=== PATIENT | female | born 1955 | race Caucasian/White ===

== ENCOUNTER 2018-12-07 19:54 | Inpatient (IN) | payer MEDICARE, BC ==
[~2018-12-07] VITALS: Ht 165.1 cm; Wt 49.0 kg
[2018-12-07] MEDS ORDERED: ACETAMINOPHEN 325 MG TAB PO STA (22:46)
--- NOTE | 2018-12-07 22:51 | ERD ---
ER Documentation Chief Complaint Chief Complaint PT TRIP & FALL AT [employer] WITH MS, PT PRESENTS CONFUSED, PERRLA HPI 63-year-old female, with history of multiple sclerosis, presents to the emergency department, complaining of head trauma after sustaining a ground-level fall hitting the posterior aspect of her head. The event occurred approximately 2 hours prior to arrival and was witnessed by sister. No loss of consciousness no involuntary limb movement, no nausea or vomiting. The pain is dull, constant, 6/10. She denies blurred vision. ROS All systems reviewed and are negative except as per history of present illness. PMhx/Soc Medical and Surgical Hx: pt denies Surgical Hx Hx Neurological Disorder: Yes (MS ) Hx Respiratory Disorders: No Hx Cardiac Disorders: No Hx Psychiatric Problems: No Hx Miscellaneous Medical Probl: No Hx Alcohol Use: No Hx Substance Use: No Hx Tobacco Use: No Smoking Status: Never smoker FmHx Family History: No diabetes, No coronary disease Physical Exam Vitals Vital Signs Date Temp Pulse Resp B/P (MAP) Pulse Ox O2 O2 Flow FiO2 Time Delivery Rate 12/07/18 99.0 101 18 123/73 98 20:45 (90) Physical Exam Const: No acute distress Head: Atraumatic Eyes: Normal Conjunctiva ENT: Normal External Ears, Nose and Mouth. Neck: Full range of motion. No meningismus. Resp: Clear to auscultation bilaterally Cardio: Regular rate and rhythm, no murmurs Abd: Soft, non tender, non distended. Normal bowel sounds Skin: No petechiae or rashes Back: No midline or flank tenderness Ext: No cyanosis, or edema Neur: Awake and alert Psych: Normal Mood and Affect Result Diagram: 12/07/18 2315 12/07/18 2315 Results 24 hrs Laboratory Tests Test 12/07/18 23:15 White Blood Count 7.3 10^3/ul Red Blood Count 4.89 10^6/ul Hemoglobin 14.4 g/dl Hematocrit 43.0 % Mean Corpuscular Volume 87.9 fl Mean Corpuscular Hemoglobin 29.4 pg Mean Corpuscular Hemoglobin Concent 33.5 g/dl Red Cell Distribution Width 12.5 % Platelet Count 226 10^3/UL Mean Platelet Volume 10.9 fl Immature Granulocytes % 0.400 % Neutrophils % 80.8 % Lymphocytes % 13.0 % Monocytes % 5.2 % Eosinophils % 0.1 % Basophils % 0.5 % Nucleated Red Blood Cells % 0.0 /100WBC Immature Granulocytes # 0.030 10^3/ul Neutrophils # 5.9 10^3/ul Lymphocytes # 1.0 10^3/ul Monocytes # 0.4 10^3/ul Eosinophils # 0.0 10^3/ul Basophils # 0.0 10^3/ul Nucleated Red Blood Cells # 0.0 10^3/ul Prothrombin Time 12.1 Sec Prothrombin Time Ratio 0.9 INR International Normalized Ratio 0.89 Activated Partial Thromboplast Time 25.8 Sec Sodium Level 140 mmol/L Potassium Level 3.5 mmol/L Chloride Level 104 mmol/L Carbon Dioxide Level 29 mmol/L Anion Gap 7 Blood Urea Nitrogen 14 mg/dl Creatinine 0.70 mg/dl Est Glomerular Filtrat Rate mL/min > 60 mL/min Glucose Level 113 mg/dl Calcium Level 9.4 mg/dl Current Medications Medications Dose Sig/Tapan Start Time Status Last (Trade) Ordered Route PRN Stop Time Admin Dose Reason Admin 650 mg ONCE STAT 12/07/18 DC 12/07/18 Acetaminophen PO 22:46 12/07/18 23:17 (Tylenol 22:49 Tab) Departure Condition: Stable Additional Instructions: Thank you very much for allowing us to participate in your care. Your health and safety is our top priority at [facility]. The evaluation in the emergency department has been done to rule out an acute emergency. Chronic, zje-hyhb-nepqbcortwa conditions may have not been evaluated; therefore, you need to follow up with a primary care provider in the next 48h. If symptoms persist, worsen or new symptoms develop, then patient should return to the ED immediately. Call your primary care doctor TOMORROW for an appointment during the next 2-4 days and bring all the information provided. Have prescriptions filled and follow precisely the directions on the label. If the symptoms get worse and your provider is unavailable, return to the Emergency Department immediately. GISELE CABALLERO MD Dec 07, 2018 22:51
[2018-12-08] VITALS (11 sets, daily range): BP systolic 117–140; BP diastolic 65–80; PULSE 66–92; RESP 18–22; Ht 165.1 cm; Wt 49.0 kg
[2018-12-08] MEDS ORDERED: ACETAMINOPHEN 325 MG TAB PO PRN ×2 (01:30→02:00)
[2018-12-08] MEDS ORDERED: ONDANSETRON 4 MG INJ IV PRN ×2 (01:30→02:00)
[2018-12-08] MEDS ORDERED: NACL 0.9% 3 ML SYG IV SCH (02:00)
[2018-12-08] MEDS ORDERED: ALBUTEROL/IPRATROPIUM (NEB) 3 ML AMP HHN PRN (02:00)
[2018-12-08] MEDS ORDERED: DOCUSATE SODIUM 100 MG CAP PO PRN (02:00)
[2018-12-08] MEDS ORDERED: HYDROCODONE/APAP (5/325) TAB PO PRN (02:00)
[2018-12-08] MEDS ORDERED: MAGNESIUM HYDROXIDE 30ML CUP PO PRN (02:00)
[2018-12-08] MEDS ORDERED: hydrALAzine 20 MG INJ IV PRN (02:00)
[2018-12-08] MEDS ORDERED: NITROGLYCERIN (SL) 0.4 MG TAB SL PRN (02:00)
[2018-12-08] MEDS ORDERED: morphine 2 MG INJ IV PRN (02:00)
[2018-12-08] MEDS ORDERED: LORAZEPAM 2 MG INJ IV PRN (02:00)
--- NOTE | 2018-12-08 02:26 | ERD ---
ER Documentation Chief Complaint Chief Complaint PT TRIP & FALL [facility] [employer] WITH MS, PT PRESENTS CONFUSED, PERRLA HPI This 61-year-old female presents with confusion. According to family she was last known normal approximately 24 hours ago. Apparently she fell and moving. Since then she has been altered. She is alert and oriented, however she keeps repeating herself. She states her symptoms to periodically forget where she is. This is new behavior per the family. Patient herself provides very limited history. ROS All systems reviewed and are negative except as per history of present illness. PMhx/Soc Medical and Surgical Hx: pt denies Surgical Hx Hx Neurological Disorder: Yes (MS ) Hx Respiratory Disorders: No Hx Cardiac Disorders: No Hx Psychiatric Problems: No Hx Miscellaneous Medical Probl: No Hx Alcohol Use: No Hx Substance Use: No Hx Tobacco Use: No Smoking Status: Never smoker Physical Exam Vitals Vital Signs Date Temp Pulse Resp B/P (MAP) Pulse Ox O2 O2 Flow FiO2 Time Delivery Rate 12/08/18 98.5 69 18 139/89 100 Room Air 00:45 (106) 12/07/18 99.0 101 18 123/73 98 20:45 (90) Physical Exam Const: No acute distress Head: Atraumatic Eyes: Normal Conjunctiva ENT: Normal External Ears, Nose and Mouth. Neck: Full range of motion. No meningismus. Resp: Clear to auscultation bilaterally Cardio: Regular rate and rhythm, no murmurs Abd: Soft, non tender, non distended. Normal bowel sounds Skin: No petechiae or rashes Back: No midline or flank tenderness Ext: No cyanosis, or edema Neur: Awake and alert Psych: Normal Mood and Affect Result Diagram: 12/07/18 2315 12/07/18 2315 Results 24 hrs Laboratory Tests Test 12/07/18 23:15 White Blood Count 7.3 10^3/ul Red Blood Count 4.89 10^6/ul Hemoglobin 14.4 g/dl Hematocrit 43.0 % Mean Corpuscular Volume 87.9 fl Mean Corpuscular Hemoglobin 29.4 pg Mean Corpuscular Hemoglobin Concent 33.5 g/dl Red Cell Distribution Width 12.5 % Platelet Count 226 10^3/UL Mean Platelet Volume 10.9 fl Immature Granulocytes % 0.400 % Neutrophils % 80.8 % Lymphocytes % 13.0 % Monocytes % 5.2 % Eosinophils % 0.1 % Basophils % 0.5 % Nucleated Red Blood Cells % 0.0 /100WBC Immature Granulocytes # 0.030 10^3/ul Neutrophils # 5.9 10^3/ul Lymphocytes # 1.0 10^3/ul Monocytes # 0.4 10^3/ul Eosinophils # 0.0 10^3/ul Basophils # 0.0 10^3/ul Nucleated Red Blood Cells # 0.0 10^3/ul Prothrombin Time 12.1 Sec Prothrombin Time Ratio 0.9 INR International Normalized Ratio 0.89 Activated Partial Thromboplast Time 25.8 Sec Sodium Level 140 mmol/L Potassium Level 3.5 mmol/L Chloride Level 104 mmol/L Carbon Dioxide Level 29 mmol/L Anion Gap 7 Blood Urea Nitrogen 14 mg/dl Creatinine 0.70 mg/dl Est Glomerular Filtrat Rate mL/min > 60 mL/min Glucose Level 113 mg/dl Calcium Level 9.4 mg/dl Troponin I < 0.012 ng/ml Current Medications Medications Dose Sig/Tapan Start Time Status Last (Trade) Ordered Route PRN Stop Time Admin Dose Reason Admin 650 mg ONCE STAT 12/07/18 DC 12/07/18 Acetaminophen PO 22:46 12/07/18 23:17 (Tylenol 22:49 Tab) Ondansetron 4 mg ER BRIDGE 12/08/18 HCl (Zofran PRN IV 01:30 12/09/18 Inj) NAUSEA/VOMITI 01:29 NG 650 mg ER BRIDGE 12/08/18 Acetaminophen PRN PO 01:30 12/09/18 (Tylenol .MILD PAIN 01:29 Tab) 1-3 OR TEMP IV Flush 3 ml PER 12/08/18 (NS 3 ml) PROTOCOL IV 02:00 Ondansetron 4 mg Q6H PRN 12/08/18 HCl (Zofran IV 02:00 Inj) NAUSEA/VOMITI NG 650 mg Q6H PRN 12/08/18 Acetaminophen PO .PAIN 1-3 02:00 (Tylenol OR TEMP Tab) 1 tab Q6H PRN 12/08/18 Acetaminophen PO .MOD PAIN 02:00 / 4-6 Hydrocodone Bitart ([place] (5/325)) Morphine 2 mg Q4H PRN 12/08/18 Sulfate IV .SEVERE 02:00 (morphine) PAIN 7-10 Docusate 100 mg Q12H PRN 6/5/19 Sodium PO 02:00 (Colace) .CONSTIPATION Magnesium 30 ml DAILY PRN 12/08/18 Hydroxide PO 02:00 (Milk Of Mag) .CONSTIPATION Heparin 5,000 unit Q12 SC 12/08/18 Sodium 09:00 (Porcine) (Heparin (5000 Units/1ml)) Sodium 1,000 ml @ [id number] IV 12/08/18 Chloride 75 mls/hr 01:39 Lorazepam 0.5 mg Q6H PRN 12/08/18 (Ativan) IV ANXIETY 02:00 Albuterol/ 3 ml Q4H RESP 12/08/18 Ipratropium THERAPY PRN 02:00 (Duoneb) HHN SHORTNESS OF BREATH Hydralazine 10 mg Q6H PRN 12/08/18 HCl IV ELEVATED 02:00 (Apresoline) BLOOD PRESSURE 1 tab Q5M PRN 12/08/18 Nitroglycerin SL ANGINA 02:00 (Nitroglyceri n (Sl Tab) 0.4 Mg) Aspirin 325 mg DAILY PO 12/08/18 (Ecotrin) 09:00 Procedures/MDM EKG: Rate/Rhythm: [Normal Sinus Rhythm] QRS, ST, T-waves: [No changes consistent w/ acute ischemia] Impression: [No evidence of ischemia or arrhythmia] Chest X-ray 1V Interpreted by me: Soft Tissue: No acute abnormalities Bones: No acute abnormalities Mediastinum/Cardiac Silhouette/Lungs: [No acute abnormalities] Medical decision makin-year-old female with alteration in mental status. Work-up was essentially negative, however given her continued alteration, patient will be admitted to telemetry floor to hospitalist group. Departure Diagnosis: Primary Impression: Altered mental status Altered mental status type: unspecified Qualified Codes: R41.82 - Altered mental status, unspecified Condition: Stable Additional Instructions: Thank you very much for allowing us to participate in your care. Your health and safety is our top priority at [facility]. The evaluation in the emergency department has been done to rule out an acute emergency. Chronic, pzv-isas-kegsqiywtrs conditions may have not been evaluated; therefore, you need to follow up with a primary care provider in the next 48h. If symptoms persist, worsen or new symptoms develop, then patient should return to the ED immediately. Call your primary care doctor TOMORROW for an appointment during the next 2-4 days and bring all the information provided. Have prescriptions filled and follow precisely the directions on the label. If the symptoms get worse and your provider is unavailable, return to the Emergency Department immediately. SORAYA LUCAS. Dec 08, 2018 02:26
[2018-12-08] MEDS: SOD CHLORIDE 0.45% 1,000 ML IV SCH ×3 (04:37→20:39)
[2018-12-08] MEDS ORDERED: OCRE300V IV (04:41)
[2018-12-08] MEDS ORDERED: CHOL400T10 PO (04:41)
[2018-12-08] MEDS ORDERED: MULTI PO (04:41)
[2018-12-08] MEDS ORDERED: ASPI-1046 PO (04:41)
--- NOTE | 2018-12-08 05:51 | HP ---
DATE OF ADMISSION: 12/08/2018 IDENTIFICATION: This is a 63-year-old female. CHIEF COMPLAINT: Status post fall, altered mental status. HISTORY OF PRESENT ILLNESS: A 63-year-old female with past medical history of multiple sclerosis sneha gnosed in 2011, right foot drop, who wears a leg brace for that, lumbar bulging disk, prior ablation for SVT, who presents today after having fallen and altered mental status. The patient states she wa s at the movie theater earlier today and was rushing to watch the movie and apparently fell. She onl y remembers brief episodes after the fall and mainly remembers being in the ambulance afterwards. Sh august denies taking any medications before the fall. No palpitations, no chest pains, no upper or lower GI bleeding, no nausea or vomiting, no fevers or chills, no diarrhea or constipation. When she came in today, she had a head CT performed that showed no acute intracranial abnormalities; however, there were areas of decreased attenuation in the subcortical periventricular and deep white matter, likely representing mild chronic microvascular white matter ischemic disease and a demyelinating plaques. The patient states she sees Dr. Gay, neurologist at [facility] for her MS and has been getting infusions every 6 months since either 2016 or 2017 for a diagnosis of primary progressive mu ltiple sclerosis. PAST MEDICAL HISTORY: As stated above. ALLERGIES: UNKNOWN. HOME MEDICATIONS: Other than the infusions, apparently none. SOCIAL HISTORY: Occasional alcohol use. She denies any IV drug abuse or smoking history. FAMILY HISTORY: Mother has hypertension and diabetes. PAST SURGICAL HISTORY: She has had a hysterectomy in 2004 and resection of her colon for small bowel obstruction in 2005. PHYSICAL EXAMINATION: VITAL SIGNS: T-max 99.0, pulse ____, respirations 18, blood pressure 123 to 139 systolic over 73 to 89 diastolic, saturating at 100% on room air. GENERAL: The patient is lying in bed, answering questions appropriately. No acute distress. HEENT: Pupils equal, round and react to light. Extraocular muscles intact. NECK: Supple, no thyromegaly. LUNGS: Clear to auscultation bilaterally. CARDIOVASCULAR: S1, S2 heard. No rubs or gallops. ABDOMEN: Soft, nontender and nondistended. Normal bowel sounds. No rebound or guarding. MUSCULOSKELETAL: No lower extremity edema bilaterally. NEUROLOGIC: She has some weakness in her lower extremities. Appears to be at baseline. Otherwise, the patient is awake and alert. LABORATORIES: CBC is completely normal. Basic metabolic panel is normal. We mentioned the head CT findings. She had a chest x-ray performed that shows no acute pulmonary disease. ASSESSMENT AND PLAN: A 63-year-old female status post fall with altered mental status with a prior h istory of primary progressive multiple sclerosis, right foot drop with leg brace since 2011 and prior ablation for SVT. 1. Status post fall with altered mental status. Again, the head CT did not show any acute findings other than the demyelination seen from her primary progressive multiple sclerosis. The patient, paul shah, has been having some periods of forgetfulness since the episode. This appears to be different f rom her baseline. Admit the patient, do neuro checks q.4 hours. Give her high dose aspirin x1. Rul e out for transient ischemic attack versus stroke. We will get MRI of the brain, echocardiogram and carotid Doppler study. Get PT and OT consults as well. Consider speech therapy consult. If there a re any abnormalities on her imaging studies or other studies, we will consider getting a neurology co nsult at this time. Allow for permissive hypertension at this time. 2. History of multiple sclerosis. Again, she sees a specialist at [facility], Dr. Gay and get s the medication infusion for treatment since 2017 every 6 months. Again, we will continue to monito r for now for any further abnormalities, consider neurology consult. 3. History of bulging lumbar disk. Again, monitor for now. Pain control medications and PT and OT. 4. Prior history of ablation for SVT. Again, we will monitor heart rate on telemetry floor. No pre sent issues of any arrhythmias or abnormalities. Dictated By: FLORENCIO DENNEY/SIRENA Conf#: [id number] DID#: [id number]
[2018-12-08] MEDS: ASPIRIN (EC) 325 MG TAB PO SCH (09:00)
[2018-12-08] MEDS: HEPARIN 5,000 UNIT/1 ML VIAL SC SCH ×2 (09:38→20:48)
--- NOTE | 2018-12-08 14:03 | PN ---
Date/Time of Note Date/Time of Note DATE: 12/08/18 TIME: 13:57 Assessment/Plan VTE Prophylaxis Risk score (from Ns)>0 risk: 3 SCD applied (from Ns): Yes Pharmacological prophylaxis: heparin Lines/Catheters IV Catheter Type (from [facility]): Peripheral IV Assessment/Plan Hospital Course Assessment and plan 1. Status post fall. Suspect altered mental status. During interview patient reported that she was going to the movies and was in the bathroom and found herself on the gurney afterwards. CT scan of the head showed findings consistent with her MS. She denies any headaches or further weakness of her extremities and she already had. Continue neuro check. MRI of the brain is pending. Neurologist consultation pending clinical course. Patient does follow-up with an outpatient neurologist and gets infusions for her MS. 2. History of MS. Patient follows up with Dr. Gay as outpatient. Continue supportive care 3. History of bulging lumbar disc. Physical therapy evaluation is pending. 4. History of ablation for SVT. Echocardiogram is pending. Monitor on telemetry. Disposition and plan. Follow-up on brain imaging and echocardiogram. Awaiting PT evaluation. Continue neurochecks. Appears stable at present. Anticipate discharge in the next 24 to 48 hours pending clinical course. Discussed plan of care with Dr. Garsia Result Diagram: 12/07/185 12/07/18 2315 Results 24hrs Laboratory Tests Test 12/07/18 23:15 12/08/18 02:49 12/08/18 02:50 12/08/18 09:50 White Blood Count 7.3 Red Blood Count 4.89 Hemoglobin 14.4 Hematocrit 43.0 Mean Corpuscular Volume 87.9 Mean Corpuscular 29.4 Hemoglobin Mean Corpuscular 33.5 Hemoglobin Concent Red Cell Distribution 12.5 Width Platelet Count 226 Mean Platelet Volume 10.9 H Immature Granulocytes % 0.400 Neutrophils % 80.8 H Lymphocytes % 13.0 L Monocytes % 5.2 Eosinophils % 0.1 Basophils % 0.5 Nucleated Red Blood 0.0 Cells % Immature Granulocytes # 0.030 Neutrophils # 5.9 Lymphocytes # 1.0 Monocytes # 0.4 Eosinophils # 0.0 Basophils # 0.0 Nucleated Red Blood 0.0 Cells # Prothrombin Time 12.1 Prothrombin Time Ratio 0.9 INR International 0.89 Normalized Ratio Activated 25.8 Partial Thromboplast Time Sodium Level 140 Potassium Level 3.5 Chloride Level 104 Carbon Dioxide Level 29 Anion Gap 7 Blood Urea Nitrogen 14 Creatinine 0.70 Est Glomerular Filtrat > 60 Rate mL/min Glucose Level 113 Calcium Level 9.4 Troponin I < 0.012 Ammonia < 9 L Ethyl Alcohol Level < 10.0 H Free Thyroxine 1.30 Urine Color YELLOW Urine Clarity CLEAR Urine pH 7.0 Urine Specific Phelps 1.010 Urine Ketones NEGATIVE Urine Nitrite NEGATIVE Urine Bilirubin NEGATIVE Urine Urobilinogen NEGATIVE Urine Leukocyte Esterase NEGATIVE Urine Hemoglobin NEGATIVE Urine Glucose NEGATIVE Urine Total Protein NEGATIVE Urine Opiates Screen Negative Urine Barbiturates Negative Urine Amphetamines Negative Screen Urine Benzodiazepines Negative Screen Urine Cocaine Screen Negative Urine Cannabinoids Negative Subjective 24 Hr Interval Summary Free Text/Dictation alert and oriented. no reports of pain at this time. Reports weakness on her right side which is chronic and not different. Exam/Review of Systems Exam Vitals Vital Signs Date Temp Pulse Resp B/P (MAP) Pulse Ox O2 O2 Flow FiO2 Time Delivery Rate 12/08/18 97.0 75 21 126/76 96 Room Air 12:50 (93) Intake and Output 12/07/18 12/07/18 12/08/18 1515:00 23:00 07:00 IntakeIntake Total 120 ml BalanceBalance 120 ml Constitutional: alert, oriented Psych: no complaints Neck: supple, non-tender Respiratory: clear to auscultation Cardiovascular: regular rate and rhythm Gastrointestinal: soft, non-tender Musculoskeletal: muscle weakness (right side of the body) Neurological: nl mental status, nl speech Skin: nl turgor Results Results 24hrs Laboratory Tests Test 12/07/18 23:15 12/08/18 02:49 12/08/18 02:50 12/08/18 09:50 White Blood Count 7.3 Red Blood Count 4.89 Hemoglobin 14.4 Hematocrit 43.0 Mean Corpuscular Volume 87.9 Mean Corpuscular 29.4 Hemoglobin Mean Corpuscular 33.5 Hemoglobin Concent Red Cell Distribution 12.5 Width Platelet Count 226 Mean Platelet Volume 10.9 H Immature Granulocytes % 0.400 Neutrophils % 80.8 H Lymphocytes % 13.0 L Monocytes % 5.2 Eosinophils % 0.1 Basophils % 0.5 Nucleated Red Blood 0.0 Cells % Immature Granulocytes # 0.030 Neutrophils # 5.9 Lymphocytes # 1.0 Monocytes # 0.4 Eosinophils # 0.0 Basophils # 0.0 Nucleated Red Blood 0.0 Cells # Prothrombin Time 12.1 Prothrombin Time Ratio 0.9 INR International 0.89 Normalized Ratio Activated 25.8 Partial Thromboplast Time Sodium Level 140 Potassium Level 3.5 Chloride Level 104 Carbon Dioxide Level 29 Anion Gap 7 Blood Urea Nitrogen 14 Creatinine 0.70 Est Glomerular Filtrat > 60 Rate mL/min Glucose Level 113 Calcium Level 9.4 Troponin I < 0.012 Ammonia < 9 L Ethyl Alcohol Level < 10.0 H Free Thyroxine 1.30 Urine Color YELLOW Urine Clarity CLEAR Urine pH 7.0 Urine Specific Phelps 1.010 Urine Ketones NEGATIVE Urine Nitrite NEGATIVE Urine Bilirubin NEGATIVE Urine Urobilinogen NEGATIVE Urine Leukocyte Esterase NEGATIVE Urine Hemoglobin NEGATIVE Urine Glucose NEGATIVE Urine Total Protein NEGATIVE Urine Opiates Screen Negative Urine Barbiturates Negative Urine Amphetamines Negative Screen Urine Benzodiazepines Negative Screen Urine Cocaine Screen Negative Urine Cannabinoids Negative Medications Medication Current Medications Ondansetron HCl (Zofran Inj) 4 mg ER BRIDGE PRN IV NAUSEA/VOMITING; Start 12/08/18 at 01:30; Stop 12/09/18 at 01:29 Acetaminophen (Tylenol Tab) 650 mg ER BRIDGE PRN PO .MILD PAIN 1-3 OR TEMP; Start 12/08/18 at 01:30; Stop 12/09/18 at 01:29 IV Flush (NS 3 ml) 3 ml PER PROTOCOL IV ; Start 12/08/18 at 02:00 Ondansetron HCl (Zofran Inj) 4 mg Q6H PRN IV NAUSEA/VOMITING; Start 12/08/18 at 02:00 Acetaminophen (Tylenol Tab) 650 mg Q6H PRN PO .PAIN 1-3 OR TEMP; Start 12/08/18 at 02:00 Acetaminophen/ Hydrocodone Bitart ([place] (5/325)) 1 tab Q6H PRN PO .MOD PAIN 4- 6; Start 12/08/18 at 02:00 Morphine Sulfate (morphine) 2 mg Q4H PRN IV .SEVERE PAIN 7-10; Start 12/08/18 at 02:00 Docusate Sodium (Colace) 100 mg Q12H PRN PO .CONSTIPATION; Start 12/08/18 at 02:00 Magnesium Hydroxide (Milk Of Mag) 30 ml DAILY PRN PO .CONSTIPATION; Start 12/08/18 at 02:00 Heparin Sodium (Porcine) (Heparin (5000 Units/1ml)) 5,000 unit Q12 SC Last administered on 12/08/18at 09:38; Admin Dose 5,000 UNIT; Start 12/08/18 at 09:00 Sodium Chloride 1,000 ml @ 75 mls/hr [id number] IV Last administered on 12/08/18at 04:37; Admin Dose 75 MLS/HR; Start 12/08/18 at 01:39 Lorazepam (Ativan) 0.5 mg Q6H PRN IV ANXIETY; Start 12/08/18 at 02:00 Albuterol/ Ipratropium (Duoneb) 3 ml Q4H RESP THERAPY PRN HHN SHORTNESS OF BREATH; Start 12/08/18 at 02:00 Hydralazine HCl (Apresoline) 10 mg Q6H PRN IV ELEVATED BLOOD PRESSURE; Start 12/08/18 at 02:00 Nitroglycerin (Nitroglycerin (Sl Tab) 0.4 Mg) 1 tab Q5M PRN SL ANGINA; Start 12/08/18 at 02:00 Aspirin (Ecotrin) 325 mg DAILY PO Last administered on 12/08/18at 09:00; Admin Dose 325 MG; Start 12/08/18 at 09:00 JULIENNE PULIDO NP Dec 08, 2018 14:03
[2018-12-08] MEDS: CHOLECALCIFEROL 1,000 UNIT TAB PO SCH (20:40)
[2018-12-09] VITALS (9 sets, daily range): BP systolic 115–148; BP diastolic 68–83; PULSE 64–84; RESP 18
[2018-12-09] MEDS: CHOLECALCIFEROL 1,000 UNIT TAB PO SCH ×2 (08:43→20:12)
[2018-12-09] MEDS: ASPIRIN (EC) 325 MG TAB PO SCH (08:43)
[2018-12-09] MEDS: HEPARIN 5,000 UNIT/1 ML VIAL SC SCH ×2 (08:50→20:18)
--- NOTE | 2018-12-09 11:47 | PDOCDIS ---
Discharge Instructions DIAGNOSIS Discharge Diagnosis 1. Status post fall. Suspect altered mental status. 2. History of MS. 3. History of bulging lumbar disc. 4. History of ablation for SVT. CONDITION [id number] Patient Condition: [id number] Stable HOME CARE INSTRUCTIONS: [id number] Diet Instructions: [id number] Regular FOLLOW UP/APPOINTMENTS Follow-up Plan 1. Follow up with your neurologist in one week JULIENNE PULIDO NP Dec 09, 2018 11:47
--- NOTE | 2018-12-09 12:23 | PN ---
Date/Time of Note Date/Time of Note DATE: 12/09/18 TIME: 12:14 Assessment/Plan VTE Prophylaxis Risk score (from Ns)>0 risk: 3 SCD applied (from Ns): Yes Pharmacological prophylaxis: heparin Lines/Catheters IV C[facility]ter Type (from [facility] Peripheral IV Assessment/Plan Hospital Course Assessment and plan 1. Status post fall. - Suspect altered mental status. During interview patient reported that she was going to the movies and was in the bathroom and found herself on the gurney afterwards. - CT scan of the head showed findings consistent with her MS. She denies any headaches or further weakness of her extremities and she already had. - Continue neuro check. - Neurologist consultation pending clinical course. - Patient does follow-up with an outpatient neurologist and gets infusions f or her MS. 2. History of MS. - Patient follows up with Dr. Gay as outpatient. Continue supportive care 3. History of bulging lumbar disc. P -Physical therapy evaluation is pending. - continue OT 4. History of ablation for SVT. - Echocardiogram is pending. Monitor on telemetry. Disposition and plan. Awaiting PT eval. awaiting echo result continue OT. continue supportive care for now. Further recommendations pending clinical course . Discussed plan of care with Dr. Garsia Result Diagram: 12/09/18 0603 12/09/18 0603 Results 24hrs Laboratory Tests Test 12/09/18 06:03 White Blood Count 4.9 # Red Blood Count 4.43 Hemoglobin 13.1 Hematocrit 39.5 Mean Corpuscular Volume 89.2 Mean Corpuscular Hemoglobin 29.6 Mean Corpuscular Hemoglobin Concent 33.2 Red Cell Distribution Width 12.6 Platelet Count 210 Mean Platelet Volume 11.6 H Immature Granulocytes % 0.200 Neutrophils % 47.8 Lymphocytes % 40.0 Monocytes % 9.8 Eosinophils % 1.4 Basophils % 0.8 Nucleated Red Blood Cells % 0.0 Immature Granulocytes # 0.010 Neutrophils # 2.4 Lymphocytes # 2.0 Monocytes # 0.5 Eosinophils # 0.1 Basophils # 0.0 Nucleated Red Blood Cells # 0.0 Sodium Level 140 Potassium Level 3.6 Chloride Level 107 Carbon Dioxide Level 27 Anion Gap 6 Blood Urea Nitrogen 14 Creatinine 0.61 Est Glomerular Filtrat Rate mL/min > 60 Glucose Level 88 Hemoglobin A1c 5.4 Calcium Level 8.9 Phosphorus Level 3.5 Magnesium Level 2.0 Triglycerides Level 42 Cholesterol Level 181 LDL Cholesterol, Calculated 94 HDL Cholesterol 79 Cholesterol/HDL Ratio 2.2 Thyroid Stimulating Hormone (TSH) 1.520 Subjective 24 Hr Interval Summary Free Text/Dictation reports feeling little better but still has some weakness with ambulation. Exam/Review of Systems Exam Vitals Vital Signs Date Temp Pulse Resp B/P (MAP) Pulse Ox O2 O2 Flow FiO2 Time Delivery Rate 12/09/18 98.5 74 18 118/72 98 11:06 (87) 12/09/18 Room Air 07:38 Intake and Output 12/08/18 12/08/18 12/09/18 1515:00 23:00 07:00 IntakeIntake Total 720 ml 800 ml BalanceBalance 720 ml 800 ml Exam Constitutional: alert, oriented Psych: no complaints Neck: supple, non-tender Respiratory: clear to auscultation Cardiovascular: regular rate and rhythm Gastrointestinal: soft, non-tender Musculoskeletal: muscle weakness (right side of the body) Neurological: nl mental status, nl speech Skin: nl turgor Results Results 24hrs Laboratory Tests Test 12/09/18 06:03 White Blood Count 4.9 # Red Blood Count 4.43 Hemoglobin 13.1 Hematocrit 39.5 Mean Corpuscular Volume 89.2 Mean Corpuscular Hemoglobin 29.6 Mean Corpuscular Hemoglobin Concent 33.2 Red Cell Distribution Width 12.6 Platelet Count 210 Mean Platelet Volume 11.6 H Immature Granulocytes % 0.200 Neutrophils % 47.8 Lymphocytes % 40.0 Monocytes % 9.8 Eosinophils % 1.4 Basophils % 0.8 Nucleated Red Blood Cells % 0.0 Immature Granulocytes # 0.010 Neutrophils # 2.4 Lymphocytes # 2.0 Monocytes # 0.5 Eosinophils # 0.1 Basophils # 0.0 Nucleated Red Blood Cells # 0.0 Sodium Level 140 Potassium Level 3.6 Chloride Level 107 Carbon Dioxide Level 27 Anion Gap 6 Blood Urea Nitrogen 14 Creatinine 0.61 Est Glomerular Filtrat Rate mL/min > 60 Glucose Level 88 Hemoglobin A1c 5.4 Calcium Level 8.9 Phosphorus Level 3.5 Magnesium Level 2.0 Triglycerides Level 42 Cholesterol Level 181 LDL Cholesterol, Calculated 94 HDL Cholesterol 79 Cholesterol/HDL Ratio 2.2 Thyroid Stimulating Hormone (TSH) 1.520 Medications Medication Current Medications IV Flush (NS 3 ml) 3 ml PER PROTOCOL IV ; Start 12/08/18 at 02:00 Ondansetron HCl (Zofran Inj) 4 mg Q6H PRN IV NAUSEA/VOMITING; Start 12/08/18 at 02:00 Acetaminophen (Tylenol Tab) 650 mg Q6H PRN PO .PAIN 1-3 OR TEMP; Start 12/08/18 at 02:00 Acetaminophen/ Hydrocodone Bitart ([place] (5/325)) 1 tab Q6H PRN PO .MOD PAIN 4- 6; Start 12/08/18 at 02:00 Morphine Sulfate (morphine) 2 mg Q4H PRN IV .SEVERE PAIN 7-10; Start 12/08/18 at 02:00 Docusate Sodium (Colace) 100 mg Q12H PRN PO .CONSTIPATION; Start 12/08/18 at 02:00 Magnesium Hydroxide (Milk Of Mag) 30 ml DAILY PRN PO .CONSTIPATION; Start 12/08/18 at 02:00 Heparin Sodium (Porcine) (Heparin (5000 Units/1ml)) 5,000 unit Q12 SC Last administered on 12/09/18at 08:50; Admin Dose 5,000 UNIT; Start 12/08/18 at 09:00 Sodium Chloride 1,000 ml @ 75 mls/hr [id number] IV Last administered on 12/08/18at 20:39; Admin Dose 75 MLS/HR; Start 12/08/18 at 01:39 Lorazepam (Ativan) 0.5 mg Q6H PRN IV ANXIETY; Start 12/08/18 at 02:00 Albuterol/ Ipratropium (Duoneb) 3 ml Q4H RESP THERAPY PRN HHN SHORTNESS OF BREATH; Start 12/08/18 at 02:00 Hydralazine HCl (Apresoline) 10 mg Q6H PRN IV ELEVATED BLOOD PRESSURE; Start 12/08/18 at 02:00 Nitroglycerin (Nitroglycerin (Sl Tab) 0.4 Mg) 1 tab Q5M PRN SL ANGINA; Start 12/08/18 at 02:00 Aspirin (Ecotrin) 325 mg DAILY PO Last administered on 12/09/18at 08:43; Admin Dose 325 MG; Start 12/08/18 at 09:00 Cholecalciferol (Vitamin D) 1,000 unit BID PO Last administered on 12/09/18at 08:43; Admin Dose 1,000 UNIT; Start 12/08/18 at 21:00 JULIENNE PULIDO NP Dec 09, 2018 12:23
--- NOTE | 2018-12-09 14:47 | CONSI ---
Assessment/Plan Assessment/Plan Assessment/Plan (Recall) 63 yo F with hx of MS and other comorbidities who presents for evaluation of an unwitnessed fall with possible LOC. She was noted to have progressive weakness of her R leg... for which neurology is consulted. The initial clinical picture is consistent with syncope. Her weakness is likely attributed to her MS, with her recent trauma a possible contributing factor. MRI brain is without obvious acute pathology.. EEG is normal. P: Cont medical management per primary PT/OT as necessary Follow up with neurologist as outpatient Will follow clinically Consultation Date/Type/Reason Admit Date/Time Dec 08, 2018 at 01:20 Type of Consult Neurology Reason for Consultation increasing R sided weakness Requesting Provider: JULIENNE PULIDO NP Date/Time of Note DATE: 12/09/18 TIME: 14:47 Hx of Present Illness 63 yo F with hx of MS with chronic R sided weakness and other comorbidities who presented for evaluation of transient LOC. History was obtained from pt and chart review. The pt endorses R sided weakness, though states that it is chronic because of her MS. She also follows up with a neurologist at [facility] where she receives treatment. It is additionally elsewhere noted: CHIEF COMPLAINT: Status post fall, altered mental status. HISTORY OF PRESENT ILLNESS: A 63-year-old female with past medical history of multiple sclerosis diagnosed in 2011, right foot drop, who wears a leg brace for that, lumbar bulging disk, prior ablation for SVT, who presents today after having fallen and altered mental status. The patient states she was at the movie theater earlier today and was rushing to watch the movie and apparently fell. She only remembers brief episodes after the fall and mainly remembers being in the ambulance afterwards. She denies taking any medications before the fall. No palpitations, no chest pains, no upper or lower GI bleeding, no nausea or vomiting, no fevers or chills, no diarrhea or constipation. When she came in today, she had a head CT performed that showed no acute intracranial abnormalities; however, there were areas of decreased attenuation in the subcortical periventricular and deep white matter, likely representing mild chronic microvascular white matter ischemic disease and a demyelinating plaques. The patient states she sees Dr. Gay, neurologist at [facility] for her MS and has been getting infusions every 6 months since either 2016 or 2017 for a diagnosis of primary progressive multiple sclerosis. negative unless noted otherwise in HPI Objective Exam Vitals Vital Signs Date Temp Pulse Resp B/P (MAP) Pulse Ox O2 O2 Flow FiO2 Time Delivery Rate 12/09/18 84 12:01 12/09/18 98.5 18 118/72 98 11:06 (87) 12/09/18 Room Air 07:38 Intake and Output 12/08/18 12/08/18 12/09/18 1515:00 23:00 07:00 IntakeIntake Total 720 ml 800 ml BalanceBalance 720 ml 800 ml Exam PE: Gen Appearance: No Apparent Distress HEENT: Normocephalic Cardiovascular: Regular rate Lungs: Clear bilaterally Abdomen: Soft Extremities: Dry NE: The patient was alert and oriented. Language was normal. Fund of knowledge was normal. Pupils were equal and reactive to light. There was no afferent pupillary defect. Visual becker were normal. Funduscopic examination was limited. Extra-ocular movements were full. Ptosis was absent. There was no nystagmus. Facial sensation was normal. Face was symmetric with normal strength. Hearing was intact. Palate movements were normal. Neck strength was normal. There was normal tongue bulk and speed of movement. Tone was normal. Muscle bulk was normal. I did not see fasciculations. Arms and legs were mildly weak on the R (R upper > R lower). Vibration sensation was normal. Temperature and pinprick sensation was normal. Rapid alternating movements were normal. There was no dysmetria. There was no intention tremor. Gait was deferred due to bedrest. Arm and leg reflexes were 2+ and symmetric. Velazquez's sign was absent. Plantar responses were flexor. Results Result Diagram: 12/09/1860212/09/18 0603 Results 24hrs Laboratory Tests Test 12/09/18 06:03 White Blood Count 4.9 # Red Blood Count 4.43 Hemoglobin 13.1 Hematocrit 39.5 Mean Corpuscular Volume 89.2 Mean Corpuscular Hemoglobin 29.6 Mean Corpuscular Hemoglobin Concent 33.2 Red Cell Distribution Width 12.6 Platelet Count 210 Mean Platelet Volume 11.6 H Immature Granulocytes % 0.200 Neutrophils % 47.8 Lymphocytes % 40.0 Monocytes % 9.8 Eosinophils % 1.4 Basophils % 0.8 Nucleated Red Blood Cells % 0.0 Immature Granulocytes # 0.010 Neutrophils # 2.4 Lymphocytes # 2.0 Monocytes # 0.5 Eosinophils # 0.1 Basophils # 0.0 Nucleated Red Blood Cells # 0.0 Sodium Level 140 Potassium Level 3.6 Chloride Level 107 Carbon Dioxide Level 27 Anion Gap 6 Blood Urea Nitrogen 14 Creatinine 0.61 Est Glomerular Filtrat Rate mL/min > 60 Glucose Level 88 Hemoglobin A1c 5.4 Calcium Level 8.9 Phosphorus Level 3.5 Magnesium Level 2.0 Triglycerides Level 42 Cholesterol Level 181 LDL Cholesterol, Calculated 94 HDL Cholesterol 79 Cholesterol/HDL Ratio 2.2 Thyroid Stimulating Hormone (TSH) 1.520 Past Medical History reviewed Home Meds Reported Medications Ocrelizumab (Ocrevus) 300 Mg/10 Ml Vial, 300 MG IV, VIAL 12/08/18 Cholecalciferol* (Vitamin D*) 400 Unit Tablet, 400 UNIT PO DAILY, TAB 12/08/18 Multivitamins* (Theragran*) 1 Tab Tab, 1 TAB PO DAILY, TAB 12/08/18 Aspirin* (Aspirin* (EC)) 81 Mg Tablet.dr, 81 MG PO DAILY, TAB 12/08/18 Medications Current Medications IV Flush (NS 3 ml) 3 ml PER PROTOCOL IV ; Start 12/08/18 at 02:00 Ondansetron HCl (Zofran Inj) 4 mg Q6H PRN IV NAUSEA/VOMITING; Start 12/08/18 at 02:00 Acetaminophen (Tylenol Tab) 650 mg Q6H PRN PO .PAIN 1-3 OR TEMP; Start 12/08/18 at 02:00 Acetaminophen/ Hydrocodone Bitart ([place] (5/325)) 1 tab Q6H PRN PO .MOD PAIN 4- 6; Start 12/08/18 at 02:00 Morphine Sulfate (morphine) 2 mg Q4H PRN IV .SEVERE PAIN 7-10; Start 12/08/18 at 02:00 Docusate Sodium (Colace) 100 mg Q12H PRN PO .CONSTIPATION; Start 12/08/18 at 02:00 Magnesium Hydroxide (Milk Of Mag) 30 ml DAILY PRN PO .CONSTIPATION; Start 12/08/18 at 02:00 Heparin Sodium (Porcine) (Heparin (5000 Units/1ml)) 5,000 unit Q12 SC Last administered on 12/09/18at 08:50; Admin Dose 5,000 UNIT; Start 12/08/18 at 09:00 Lorazepam (Ativan) 0.5 mg Q6H PRN IV ANXIETY; Start 12/08/18 at 02:00 Albuterol/ Ipratropium (Duoneb) 3 ml Q4H RESP THERAPY PRN HHN SHORTNESS OF BREATH; Start 12/08/18 at 02:00 Hydralazine HCl (Apresoline) 10 mg Q6H PRN IV ELEVATED BLOOD PRESSURE; Start 12/08/18 at 02:00 Nitroglycerin (Nitroglycerin (Sl Tab) 0.4 Mg) 1 tab Q5M PRN SL ANGINA; Start 12/08/18 at 02:00 Aspirin (Ecotrin) 325 mg DAILY PO Last administered on 12/09/18at 08:43; Admin Dose 325 MG; Start 12/08/18 at 09:00 Cholecalciferol (Vitamin D) 1,000 unit BID PO Last administered on 12/09/18at 08:43; Admin Dose 1,000 UNIT; Start 12/08/18 at 21:00 Allergies: Coded Allergies: No Known Allergies (Verified Allergy, Unknown, 12/08/18) Past Surgical History reviewed Social History reviewed Smoking Status: Never smoker MARISA GALLAGHER NP Dec 09, 2018 14:47 MILI HULL Dec 10, 2018 06:01
--- NOTE | 2018-12-09 14:55 | QN ---
Documentation Comment As Physician Advisor I have reviewed the chart and have determined that as of today, this patient continues to receive medically necessary care required for the diagnosis and treatment of illness or injury. There has been no unreasonable delay in the rendering of medically necessary services, and this medically necessary care requires a length of stay expected to be greater than two midnights. Additional information gained during the stay now suggests this patient should have been classified as an inpatient at the time of admission, and I will change the status to inpatient to reflect that medical judgment. Besides the notes from the medical providers, the following information was used in this determination: Altered mental status s/p fall, multiple sclerosis with foot drop. Required CT, MRI, echocardiogram, and carotid doppler studies. Ongoing PT needs. Please call me at [phone] with questions. LIZET QUINTANILLA MD Dec 09, 2018 14:55
--- NOTE | 2018-12-09 15:45 | RADRPT ---
Echocardiogram Report Patient Name: ANIBAL GUSMANPatient ID: [id number] : 1955 (63y 9m)Study Date: 12/09/2018 9:37:16 AM Gender: FAccession #: [id number] Tech: LE Location: [facility] Ref.Physician: JULIENNE PULIDO Height(Cm): BSA: Weight(Kg): Quality: GoodOrder Physician: JULIENNE PULIDO Account #: Procedures: Echocardiographic Report: Transthoracic echocardiogram with complete 2D, M-Mode, and doppler examination. Indications: Syncope. Measurements: 2D/M Mode Doppler Measurement Value Normal Range Measurement Value Normal Range LVIDd 2D 3.7 [ 3.8 - 5.2 ] cm AV Mean Cesar 1.0 [ 70.0 - 90.0 ] cm/sec LVIDs 2D 2.5 [ 2.2 - 3.5 ] cm AV Mean PG 4.0 [ 2.0 - 4.0 ] mmHg LVPWd 2D 0.9 [ 0.6 - 0.9 ] cm AV Peak Cesar 1.5 [ 100.0 - 170.0 ] cm/sec IVSd 2D 0.9 [ 0.6 - 0.9 ] cm AV Peak PG 8.0 [ 2.0 - 9.0 ] mmHg EDV 2D 56.6 [ 46.0 - 106.0 ] ml AV VTI 25.9 cm ESV 2D 21.4 [ 14.0 - 42.0 ] ml LVOT Peak Cesar 1.0 [ 70.0 - 110.0 ] cm/sec EF 2D 62.2 [ 54.0 - 74.0 ] percent LVOT Peak PG 4.0 [ 2.0 - 6.0 ] mmHg LVOT Diam 1.9 [ 2.1 - 2.5 ] cm MV E Peak Cesar 0.7 [ 60.0 - 130.0 ] cm/sec MV A Peak Cesar 0.9 [ 100.0 - 120.0 ] cm/sec MV E/A 0.8 [ 0.8 - 1.5 ] ratio MV Decel Time 268 [ 104 - 258 ] msec Lat E` Cesar 0.1 [ 10.0 - 15.0 ] cm/sec Lateral E/E` 7.0 [ 1.0 - 2.0 ] ratio Med E` Cesar 0.1 cm/sec MV E/A 0.8 [ 0.8 - 1.5 ] ratio TR Peak Cesar 2.6 [ 100.0 - 280.0 ] cm/sec TR Peak PG 27.0 mmHg PV Peak Cesar 1.0 [ 40.0 - 80.0 ] cm/sec PV Peak PG 4.0 mmHg Findings: Left Ventricle: Normal left ventricular systolic function. Normal left ventricular cavity size. Mild hypertrophy of the basal septum. Ejection fraction is visually estimated at 60 %. Tissue Doppler/Mitral Doppler indices are consistent with impaired relaxation (Stage I diastolic dysfunction). Right Ventricle: Normal right ventricular size. Normal right ventricular systolic function. Left Atrium: Upper limit of normal left atrial size. Right Atrium: The right atrium is normal in size. Mitral Valve: Normal appearance and function of the mitral valve with trace regurgitation. Aortic Valve: Normal appearance of the aortic valve. No significant aortic stenosis or insufficiency. Tricuspid Valve: Normal appearance of the tricuspid valve. The estimated Peak RVSP is 30 mmHg. There is trace to mild tricuspid regurgitation. Pulmonic Valve: Normal pulmonic valve appearance. There is trace pulmonic regurgitation. Pericardium: Normal pericardium with no significant pericardial effusion. Aorta: Normal aortic root. IVC: Normal size and normal respiratory collapse consistent with normal right atrial pressure. Conclusions: Normal left ventricular systolic function. Normal left ventricular cavity size. Mild hypertrophy of the basal septum. Ejection fraction is visually estimated at 60 %. Tissue Doppler/Mitral Doppler indices are consistent with impaired relaxation (Stage I diastolic dysfunction). No significant valvular stenosis or regurgitation seen. The estimated Peak RVSP is 30 mmHg. Normal size and normal respiratory collapse consistent with normal right atrial pressure. Electronically Signed By: Santos Smith 2018-12-09 15:44:36 PDT
--- NOTE | 2018-12-09 18:14 | EEG ---
EEG NOTE Report Details DATE OF TEST: 12/09/18 HISTORY: The patient is a 63-year-old F who presents following LOC. This EEG is requested to evaluate for an epileptic disorder. SEDATION: None. CONDITIONS OF RECORDING: This EEG was recorded digitally on the [employer] machine, using the International 10-20 System of electrodes plus anterior temporals and [place]. STATES SAMPLED: Wakefulness through stage II sleep. FINDINGS: During wakefulness, there is a 11-12 Hz posterior dominant rhythm. There is a normal [id number] frequency-amplitude gradient. The remainder of the awake background is normal. Photic stimulation does not elicit any definite driving responses or epileptiform discharges. Hyperventilation, performed with good effort, produces a negligible change in the background. The patient passed into sleep, reaching stage II, characterized by normal and symmetrical vertex waves and spindles. No asymmetries, focal abnormalities or epileptiform discharges were seen. IMPRESSION: Normal electroencephalogram during wakefulness and sleep. MILI HULL Dec 09, 2018 18:14
[2018-12-10] VITALS (8 sets, daily range): BP systolic 122–141; BP diastolic 71–81; PULSE 63–84; RESP 18
[2018-12-10] MEDS: ASPIRIN (EC) 325 MG TAB PO SCH (08:40)
[2018-12-10] MEDS: CHOLECALCIFEROL 1,000 UNIT TAB PO SCH ×2 (08:40→20:05)
[2018-12-10] MEDS: HEPARIN 5,000 UNIT/1 ML VIAL SC SCH ×2 (08:44→20:15)
--- NOTE | 2018-12-10 12:34 | CONS ---
Assessment/Plan Assessment/Plan Assessment/Plan (Recall) 63 yo F with hx of MS and other comorbidities who presents for evaluation of an unwitnessed fall with possible LOC. She was noted to have progressive weakness of her R leg... for which neurology is consulted. The initial clinical picture is consistent with syncope. Her weakness is likely attributed to her MS, with her recent trauma a possible contributing factor. MRI brain is without obvious acute pathology.. EEG is normal. P: Cont medical management per primary PT/OT as necessary Follow up with neurologist as outpatient Will follow clinically Consultation Date/Type/Reason Admit Date/Time Dec 09, 2018 at 14:51 Type of Consult Neurology Reason for Consultation increasing R sided weakness Requesting Provider: JULIENNE PULIDO NP Date/Time of Note DATE: 12/10/18 TIME: 12:34 24 HR Interval Summary Free Text/Dictation Continues acute care. Pt states that she feels much better today. Awaiting possible dc home. States that she has an appt with her neurologist next week to receive her MS meds. Exam/Review of Systems Exam Vitals Vital Signs Date Temp Pulse Resp B/P (MAP) Pulse Ox O2 O2 Flow FiO2 Time Delivery Rate 12/10/18 97.9 81 18 123/78 97 Room Air 11:26 (93) Exam PE: Gen Appearance: No Apparent Distress HEENT: Normocephalic Cardiovascular: Regular rate Lungs: Clear bilaterally Abdomen: Soft Extremities: Dry NE: The patient was alert and oriented. Language was normal. Fund of knowledge was normal. Pupils were equal and reactive to light. There was no afferent pupillary defect. Visual becker were normal. Funduscopic examination was limited. Extra-ocular movements were full. Ptosis was absent. There was no nystagmus. Facial sensation was normal. Face was symmetric with normal strength. Hearing was intact. Palate movements were normal. Neck strength was normal. There was normal tongue bulk and speed of movement. Tone was normal. Muscle bulk was normal. I did not see fasciculations. Arms and legs were mildly weak on the R (R upper > R lower). Vibration sensation was normal. Temperature and pinprick sensation was normal. Rapid alternating movements were normal. There was no dysmetria. There was no intention tremor. Gait was deferred due to bedrest. Arm and leg reflexes were 2+ and symmetric. Velazquez's sign was absent. Plantar responses were flexor. Results Result Diagram: 12/10/18 0556 12/10/18 0556 Results 24hrs Laboratory Tests Test 12/10/18 05:56 White Blood Count 4.9 Red Blood Count 4.67 Hemoglobin 13.8 Hematocrit 41.2 Mean Corpuscular Volume 88.2 Mean Corpuscular Hemoglobin 29.6 Mean Corpuscular Hemoglobin Concent 33.5 Red Cell Distribution Width 12.6 Platelet Count 209 Mean Platelet Volume 11.5 H Immature Granulocytes % 0.200 Neutrophils % 45.3 Lymphocytes % 43.1 Monocytes % 9.0 Eosinophils % 1.8 Basophils % 0.6 Nucleated Red Blood Cells % 0.0 Immature Granulocytes # 0.010 Neutrophils # 2.2 Lymphocytes # 2.1 Monocytes # 0.4 Eosinophils # 0.1 Basophils # 0.0 Nucleated Red Blood Cells # 0.0 Sodium Level 142 Potassium Level 3.9 Chloride Level 107 Carbon Dioxide Level 27 Anion Gap 8 Blood Urea Nitrogen 14 Creatinine 0.66 Est Glomerular Filtrat Rate mL/min > 60 Glucose Level 86 Calcium Level 9.0 Vitamin B12 Level 506 Medications Medication Current Medications IV Flush (NS 3 ml) 3 ml PER PROTOCOL IV ; Start 12/08/18 at 02:00 Ondansetron HCl (Zofran Inj) 4 mg Q6H PRN IV NAUSEA/VOMITING; Start 12/08/18 at 02:00 Acetaminophen (Tylenol Tab) 650 mg Q6H PRN PO .PAIN 1-3 OR TEMP Last administered on 12/10/18at 08:53; Admin Dose 650 MG; Start 12/08/18 at 02:00 Acetaminophen/ Hydrocodone Bitart ([place] (5/325)) 1 tab Q6H PRN PO .MOD PAIN 4- 6; Start 12/08/18 at 02:00 Morphine Sulfate (morphine) 2 mg Q4H PRN IV .SEVERE PAIN 7-10; Start 12/08/18 at 02:00 Docusate Sodium (Colace) 100 mg Q12H PRN PO .CONSTIPATION; Start 12/08/18 at 02:00 Magnesium Hydroxide (Milk Of Mag) 30 ml DAILY PRN PO .CONSTIPATION; Start 12/08/18 at 02:00 Heparin Sodium (Porcine) (Heparin (5000 Units/1ml)) 5,000 unit Q12 SC Last administered on 12/10/18at 08:44; Admin Dose 5,000 UNIT; Start 12/08/18 at 09:00 Lorazepam (Ativan) 0.5 mg Q6H PRN IV ANXIETY; Start 12/08/18 at 02:00 Albuterol/ Ipratropium (Duoneb) 3 ml Q4H RESP THERAPY PRN HHN SHORTNESS OF BREATH; Start 12/08/18 at 02:00 Hydralazine HCl (Apresoline) 10 mg Q6H PRN IV ELEVATED BLOOD PRESSURE; Start 12/08/18 at 02:00 Nitroglycerin (Nitroglycerin (Sl Tab) 0.4 Mg) 1 tab Q5M PRN SL ANGINA; Start 12/08/18 at 02:00 Aspirin (Ecotrin) 325 mg DAILY PO Last administered on 12/10/18at 08:40; Admin Dose 325 MG; Start 12/08/18 at 09:00 Cholecalciferol (Vitamin D) 1,000 unit BID PO Last administered on 12/10/18at 08:40; Admin Dose 1,000 UNIT; Start 12/08/18 at 21:00 MARISA GALLAGHER NP Dec 10, 2018 12:34
--- NOTE | 2018-12-10 15:07 | PN ---
Date/Time of Note Date/Time of Note DATE: 12/10/18 TIME: 15:04 Assessment/Plan VTE Prophylaxis Risk score (from Ns)>0 risk: 3 SCD applied (from Ns): Yes Pharmacological prophylaxis: heparin Lines/Catheters IV Catheter Type (from [facility]): Peripheral IV Assessment/Plan Hospital Course Assessment and plan 1. Status post fall. - Suspect altered mental status. During interview patient reported that she was going to the movies and was in the bathroom and found herself on the gurney afterwards. - CT scan of the head showed findings consistent with her MS. She denies any headaches or further weakness of her extremities and she already had. - Continue neuro check. - Neurologist consultation pending clinical course. - Patient does follow-up with an outpatient neurologist and gets infusions f or her MS. 2. History of MS. - Patient follows up with Dr. Gay as outpatient. Continue supportive care 3. History of bulging lumbar disc. -Physical therapy evaluation is pending. - continue OT - lumbar imaging pending clinical course 4. History of ablation for SVT. - Echocardiogram with preserved EF Disposition and plan. Plan to d/c today if cleared by Pt. continue supportive care Discussed plan of care with Dr. Garsia Result Diagram: 12/10/18 0556 12/10/18 0556 Results 24hrs Laboratory Tests Test 12/10/18 05:56 White Blood Count 4.9 Red Blood Count 4.67 Hemoglobin 13.8 Hematocrit 41.2 Mean Corpuscular Volume 88.2 Mean Corpuscular Hemoglobin 29.6 Mean Corpuscular Hemoglobin Concent 33.5 Red Cell Distribution Width 12.6 Platelet Count 209 Mean Platelet Volume 11.5 H Immature Granulocytes % 0.200 Neutrophils % 45.3 Lymphocytes % 43.1 Monocytes % 9.0 Eosinophils % 1.8 Basophils % 0.6 Nucleated Red Blood Cells % 0.0 Immature Granulocytes # 0.010 Neutrophils # 2.2 Lymphocytes # 2.1 Monocytes # 0.4 Eosinophils # 0.1 Basophils # 0.0 Nucleated Red Blood Cells # 0.0 Sodium Level 142 Potassium Level 3.9 Chloride Level 107 Carbon Dioxide Level 27 Anion Gap 8 Blood Urea Nitrogen 14 Creatinine 0.66 Est Glomerular Filtrat Rate mL/min > 60 Glucose Level 86 Calcium Level 9.0 Vitamin B12 Level 506 Subjective 24 Hr Interval Summary Free Text/Dictation comfortable at present. states she feels little stronger but has some low back pain suspect from a fall she may have had when she was at the theatre prior to admission Exam/Review of Systems Exam Vitals Vital Signs Date Temp Pulse Resp B/P (MAP) Pulse Ox O2 O2 Flow FiO2 Time Delivery Rate 12/10/18 84 12:00 12/10/18 97.9 18 123/78 97 Room Air 11:26 (93) Exam Constitutional: alert, oriented Psych: no complaints Neck: supple, non-tender Respiratory: clear to auscultation Cardiovascular: regular rate and rhythm Gastrointestinal: soft, non-tender Musculoskeletal: muscle weakness (right side of the body) Neurological: nl mental status, nl speech Skin: nl turgor Results Results 24hrs Laboratory Tests Test 12/10/18 05:56 White Blood Count 4.9 Red Blood Count 4.67 Hemoglobin 13.8 Hematocrit 41.2 Mean Corpuscular Volume 88.2 Mean Corpuscular Hemoglobin 29.6 Mean Corpuscular Hemoglobin Concent 33.5 Red Cell Distribution Width 12.6 Platelet Count 209 Mean Platelet Volume 11.5 H Immature Granulocytes % 0.200 Neutrophils % 45.3 Lymphocytes % 43.1 Monocytes % 9.0 Eosinophils % 1.8 Basophils % 0.6 Nucleated Red Blood Cells % 0.0 Immature Granulocytes # 0.010 Neutrophils # 2.2 Lymphocytes # 2.1 Monocytes # 0.4 Eosinophils # 0.1 Basophils # 0.0 Nucleated Red Blood Cells # 0.0 Sodium Level 142 Potassium Level 3.9 Chloride Level 107 Carbon Dioxide Level 27 Anion Gap 8 Blood Urea Nitrogen 14 Creatinine 0.66 Est Glomerular Filtrat Rate mL/min > 60 Glucose Level 86 Calcium Level 9.0 Vitamin B12 Level 506 Medications Medication Current Medications IV Flush (NS 3 ml) 3 ml PER PROTOCOL IV ; Start 12/08/18 at 02:00 Ondansetron HCl (Zofran Inj) 4 mg Q6H PRN IV NAUSEA/VOMITING; Start 12/08/18 at 02:00 Acetaminophen (Tylenol Tab) 650 mg Q6H PRN PO .PAIN 1-3 OR TEMP Last administered on 12/10/18at 08:53; Admin Dose 650 MG; Start 12/08/18 at 02:00 Acetaminophen/ Hydrocodone Bitart ([place] (5/325)) 1 tab Q6H PRN PO .MOD PAIN 4- 6; Start 12/08/18 at 02:00 Morphine Sulfate (morphine) 2 mg Q4H PRN IV .SEVERE PAIN 7-10; Start 12/08/18 at 02:00 Docusate Sodium (Colace) 100 mg Q12H PRN PO .CONSTIPATION; Start 12/08/18 at 02:00 Magnesium Hydroxide (Milk Of Mag) 30 ml DAILY PRN PO .CONSTIPATION; Start 12/08/18 at 02:00 Heparin Sodium (Porcine) (Heparin (5000 Units/1ml)) 5,000 unit Q12 SC Last administered on 12/10/18at 08:44; Admin Dose 5,000 UNIT; Start 12/08/18 at 09:00 Lorazepam (Ativan) 0.5 mg Q6H PRN IV ANXIETY; Start 12/08/18 at 02:00 Albuterol/ Ipratropium (Duoneb) 3 ml Q4H RESP THERAPY PRN HHN SHORTNESS OF BREATH; Start 12/08/18 at 02:00 Hydralazine HCl (Apresoline) 10 mg Q6H PRN IV ELEVATED BLOOD PRESSURE; Start 12/08/18 at 02:00 Nitroglycerin (Nitroglycerin (Sl Tab) 0.4 Mg) 1 tab Q5M PRN SL ANGINA; Start 12/08/18 at 02:00 Aspirin (Ecotrin) 325 mg DAILY PO Last administered on 12/10/18at 08:40; Admin Dose 325 MG; Start 12/08/18 at 09:00 Cholecalciferol (Vitamin D) 1,000 unit BID PO Last administered on 12/10/18at 08:40; Admin Dose 1,000 UNIT; Start 12/08/18 at 21:00 JULIENNE PULIDO NP Dec 10, 2018 15:07
--- NOTE | 2018-12-15 17:05 | DS ---
Date/Time of Note Date/Time of Note DATE: 12/15/18 TIME: 17:00 Discharge Summary Admission/Discharge Info Admit Date/Time Dec 09, 2018 at 14:51 Discharge Date/Time Dec 10, 2018 at 21:17 Discharge Diagnosis 1. Status post fall. Suspect altered mental status. 2. History of MS. 3. History of bulging lumbar disc. 4. History of ablation for SVT. Patient Condition: Stable Consults 1. Dr. Hui Allen Hospital Course This is a 63-year-old female with history of multiple sclerosis diagnosed in 2011, right foot drop, wears a brace for that issue, lumbar disc bulge, prior ablation for SVT, who came to [facility] after reportedly suffering from a fall with a LOC. Patient per report was ultimately theater prior to admission when she apparently fell. She only remembers everything episode of the fall. She denies taking any medications prior to the fall. Denies any chest pain or palpitations. No nausea or vomiting or chills. She had a CT scan of her head that showed no acute intracranial abnormalities however there was areas of decreased attenuation in the subcortical periventricular and deep white matter likely representing mild chronic microvascular white matter ischemic disease and demyelinating plaques. Patient of note did see Dr. Gay her neurologist at [facility] for MS. She states that she has been getting infusions for the past 6 months for her diagnosis of primary progressive multiple sclerosis. Patient was seen in the hospital by neurologist. Likely her weakness was attributed to her multiple sclerosis. Brain MRI was also done with no obvious acute pathology and of note her EEG was normal. Carotid Doppler was also done that showed no evidence of hemodynamically significant stenosis in bilateral internal carotid arteries. Lumbar x-ray also showed no acute fracture or dislocation. Echocardiogram was also done that showed her to have an ejection fraction estimated at 60% with stage I diastolic dysfunction. She was otherwise optimized medically. She was seen by physical therapy while in-house. She was advised to get up from sitting or laying down slowly to help prevent falls. During her course of stay she did improve. She was advised for outpatient follow-up with her neurologist for further management and care. The plan of care was discussed with the patient and patient verbalized understanding. On the day of discharge patient was in stable condition Discussed plan of care with Dr. Garsia [facility] Reported Medications Ocrelizumab (Ocrevus) 300 Mg/10 Ml Vial, 300 MG IV, VIAL 12/08/18 Cholecalciferol* (Vitamin D*) 400 Unit Tablet, 400 UNIT PO DAILY, TAB 12/08/18 Multivitamins* (Theragran*) 1 Tab Tab, 1 TAB PO DAILY, TAB 12/08/18 Aspirin* (Aspirin* (EC)) 81 Mg Tablet.dr, 81 MG PO DAILY, TAB 12/08/18 Follow-up Plan 1. Follow up with your neurologist in one week Primary Care Provider Not On Staff Doctor Time spent on discharge: > 30 minutes JULIENNE PULIDO NP Dec 15, 2018 17:05
== END 2018-12-10 21:17 | disposition home health service (06) | DRG 948 ==
LOC: E/R 19:54 → 6WM 12-08 01:20 → OBSVTOIN 12-09 14:51
PROVIDERS: ADMIT Hospitalist; ATTEND Hospitalist
DX: R41.82 Altered mental status, unspecified (principal); G35 Multiple sclerosis; M21.371 Foot drop, right foot; M51.26 Other intervertebral disc displacement, lumbar region; Z91.81 History of falling
CPT/HCPCS: 36415; 70450; 70551; 71045; 72100; 80048; 80061; 80307; 81003; 82140; 82607; 83036; 83735; 84100; 84439; 84443; 84484; 85025; 85610; 85730; 87086; 92610; 93005; 93306; 93880; 95819; 97110; 97116; 97162; 97165; 97530; G0378; J1644